=== PATIENT | male | born 1985 | race Caucasian/White ===

== ENCOUNTER 2020-09-06 16:14 | Emergency (ER) | payer OTHER ==
[~2020-09-06] VITALS: Ht 172.7 cm; Wt 81.8 kg
[2020-09-06] MEDS ORDERED: PROPARACAINE HCL 0.5% 15 ML OPHTHALMIC SOLUTION OS ONE (17:15)
[2020-09-06] MEDS ORDERED: FLUORESCEIN SODIUM 1 MG STRIP OU ONE (17:15)
[2020-09-06] MEDS ORDERED: TOBRAMYCIN/DEXAMETHASONE 5 ML OPHTHALMIC SUSPENSION OS ONE (18:00)
[2020-09-06 18:27] VITALS: BP 121/74
== END 2020-09-06 18:27 | disposition home or self-care (01) ==
LOC: EMS 16:17
DX: H10.13 Acute atopic conjunctivitis, bilateral (principal); H10.9 Unspecified conjunctivitis
CPT/HCPCS: 99283

== ENCOUNTER 2024-09-15 18:56 | Emergency (ER) | payer OTHER ==
[~2024-09-15] VITALS: Ht 172.7 cm; Wt 79.5 kg
[2024-09-15 19:12] VITALS: BP 123/76; PULSE 113; RESP 16; TEMP 98.2; O2SAT 98
[2024-09-16] MEDS ORDERED: SULF-261 PO (13:56)
[2024-09-16] MEDS ORDERED: CEPH-558 PO (13:56)
[2024-09-16] MEDS ORDERED: ACET-3385 PO (13:56)
== END 2024-09-15 20:45 | disposition left against medical advice (07) ==
LOC: EMS 18:56
DX: R22.43 Localized swelling, mass and lump, lower limb, bilateral (principal); Z53.21 Procedure and treatment not carried out due to patient leaving prior to being seen by health care provider